=== PATIENT | female | born 1995 | race Caucasian/White ===

== ENCOUNTER 2024-07-09 07:45 | Inpatient (IN) ==
[2024-09-15] MEDS: Lactated Ringers 1000 ml BAG 1,000 ML IV SCH (05:32)
[2024-09-15 05:48] LABS: ABS Basophils 0.1 10^3/uL (0.0-0.1); ABS Eosinophils 0.1 10^3/uL (0.0-0.5); ABS Lymphocytes 2.3 10^3/uL (1.0-4.8); ABS Monocytes 0.7 10^3/uL (0.0-0.9); ABS Nucleated RBC 0.01 10^3/ul; Eosinophil % 0.6 %; Hematocrit 37.5 % (35-45); Hemoglobin 12.6 g/dL (11.5-14.3); Mean Corpuscular Hemoglobin 29.4 pg (27-33); Mean Corpuscular Hgb Conc 33.5 g/dL (31-36); Mean Corpuscular Volume 87.8 fL (80-97); Mean Platelet Volume 8.9 fL (7.5-11.2); Nucleated Red Blood Cells % 0.1 %/100WBC (0.0-0.8); Platelet Count 264 10^3/uL (150-450); Red Blood Count 4.27 10^6/uL (3.63-4.92); Red Cell Distribution Width 14.3 % (12-17); White Blood Count 11.1 10^3/uL (3.8-11.8)
[2024-09-15] MEDS: ceFAZolin 2 GM PREMIX 2 GM/50 ML BAG IV ONE (06:16)
[2024-09-15] MEDS ORDERED: Ondansetron 4 mg VIAL 2 MG/ML 2 ml VIAL ONE (07:04)
[2024-09-15] MEDS ORDERED: Dexamethasone IV 4 MG/ML VIAL 1 ml VIAL ONE (07:04)
[2024-09-15] MEDS ORDERED: Acetaminophen IV 1 GM/100ML 1,000 MG/100 ML BAG IV ONE (07:04)
[2024-09-15] MEDS ORDERED: Sodium Citrate/Citric Acid LIQ 15 ML UDC ONE (07:04)
[2024-09-15] MEDS ORDERED: Phenylephrine IV 10 MG/ML 1 ml VIAL ONE (07:04)
[2024-09-15] MEDS ORDERED: fentaNYL 100 mcg/2 ml 50 MCG/ML VIAL ONE (07:05)
[2024-09-15] MEDS ORDERED: Morphine PF AMP (0.5MG/ML) 5 MG/10 ML AMP ONE (07:05)
[2024-09-15] MEDS ORDERED: Sodium Chloride 0.9% 10 ML ONE (07:05)
[2024-09-15] MEDS ORDERED: Oxytocin 10 UNITS/ML 1 ML VIAL ONE (08:33)
[2024-09-15 09:19] LABS: Urine Appearance Clear; Urine Bilirubin Negative (Negative); Urine Blood Negative (Negative); Urine Color Light-Yellow; Urine Glucose Negative (Negative); Urine Ketones Negative (Negative); Urine Nitrite Negative (Negative); Urine Protein Negative (Negative); Urine Urobilinogen Negative (Negative)
[2024-09-15] MEDS ORDERED: Glycerin ADULT 2.4 gm SUPP PR PRN (09:25)
[2024-09-15] MEDS ORDERED: Witch Hazel PAD JAR TOPICAL PRN (09:25)
[2024-09-15] MEDS ORDERED: Dibucaine 1% OINT 28.35 GM TUBE PR PRN (09:25)
[2024-09-15] MEDS ORDERED: HYDROmorphone 1 MG/1 ML SYRINGE IV PRN (09:30)
[2024-09-15] MEDS ORDERED: Naloxone 0.4 mg VIAL 0.4 mg/ml 1 ml VIAL IV PRN (09:30)
[2024-09-15] MEDS ORDERED: Ondansetron 4 mg VIAL 2 MG/ML 2 ml VIAL IV PRN (09:31)
[2024-09-15] MEDS ORDERED: Acetaminophen IV 1 GM/100ML 1,000 MG/100 ML BAG IV PRN (09:31)
[2024-09-15] MEDS ORDERED: Metoclopramide 5 MG/ML VIAL (10 mg) IV PRN (09:31)
[2024-09-15] MEDS ORDERED: Naloxone 0.4 mg VIAL 0.4 mg/ml 1 ml VIAL IV PUSH PRN (09:31)
[2024-09-15 09:49] LABS: Urine Benzodiazepine Screen None Detected (None Detect); Urine Cannabinoids Screen None Detected (None Detect); Urine Opiates Screen None Detected (None Detect)
[2024-09-15] MEDS ORDERED: Lactated Ringers 1000 ml BAG 1,000 ML IV SCH (10:00)
[2024-09-16] MEDS: Buffered Lidocaine 1% SYRIN 1 ml INTRADERM ONE (01:28)
[2024-09-16] MEDS: Sodium Citrate/Citric Acid LIQ 15 ML UDC PO ONE (01:28)
[2024-09-16] MEDS: Lactated Ringers 1000 ml BAG 1,000 ML IV SCH (01:28)
[2024-09-16] MEDS: Lactated Ringers 1000 ml BAG 1,000 ML IV ONE (01:28)
[2024-09-16 06:50] LABS: ABS Eosinophils 0.1 10^3/uL (0.0-0.5); ABS Lymphocytes 2.9 10^3/uL (1.0-4.8); ABS Monocytes 0.8 10^3/uL (0.0-0.9); Eosinophil % 0.6 %; Hematocrit 29.1 % (35-45); Hemoglobin 9.8 g/dL (11.5-14.3); Lymphocyte % 27.1 %; Mean Corpuscular Hgb Conc 33.8 g/dL (31-36); Mean Corpuscular Volume 88.7 fL (80-97); Mean Platelet Volume 8.5 fL (7.5-11.2); Platelet Count 230 10^3/uL (150-450); Red Blood Count 3.28 10^6/uL (3.63-4.92); Red Cell Distribution Width 14.1 % (12-17); White Blood Count 10.8 10^3/uL (3.8-11.8)
== END 2024-09-17 12:30 | disposition home or self-care (01) | DRG 540 ==
LOC: MCHOB 09-15 05:00
PROVIDERS: ADMIT Obstetrics & Gynecology; ATTEND Obstetrics & Gynecology